=== PATIENT | male | born 1960 | race Caucasian/White ===

== ENCOUNTER → 2018-02-08 | Outpatient (CLI) | payer MEDICAID ==
[2018-02-08 07:43] LABS: ALT 40 U/L (21-72); AST 24 U/L (17-59); Albumin 4.2 g/dL (3.5-5.0); Alkaline Phosphatase 70 U/L (38-126); Anion Gap 12 mmol/L; Blood Urea Nitrogen 18 mg/dL (9-20); Calcium 9.1 mg/dL (8.4-10.2); Carbon Dioxide 28 mmol/L (22-30); Chloride 100 mmol/L (98-107); Cholesterol 181 mg/dL (<200); Glucose 147 mg/dL (74-99); HDL Cholesterol 50 mg/dL (40-60); LDL Cholesterol,Calculated 115 mg/dL (0-99); Potassium 5.3 mmol/L (3.5-5.1); Sodium 140 mmol/L (137-145); Total Bilirubin 0.5 mg/dL (0.2-1.3); Total Protein 7.3 g/dL (6.3-8.2); Triglycerides 80 mg/dL (<150)
[2018-02-08 11:36] LABS: Hemoglobin A1C 7.4 % (4.0-6.0)
== END | disposition home or self-care (01) ==
LOC: LABWHC1 06:47
PROVIDERS: ATTEND Internal Medicine Endocrinology, Diabetes & Metabolism
DX: E11.65 Type 2 diabetes mellitus with hyperglycemia (principal)
CPT/HCPCS: 36415; 80053; 80061; 82043; 82570; 83036

== ENCOUNTER 2018-07-13 11:11 | Day surgery (SDC) | payer MEDICAID ==
[2018-07-10 15:21] VITALS: BMI 51.7
[~2018-07-13 11:11] MED LIST: LACTATED RINGERS 1,000 ML IV SCH; LIDOCAINE 1% 20 ML VIAL (10MG/ML) FOR IV START INTRADERMA PRN
[2018-07-13 11:30] VITALS: TEMP 97.5
[2018-07-13 11:39] LABS: Glucose,Whole Blood 115 mg/dL (75-99)
[2018-07-13] MEDS ORDERED: PROPOFOL 10 MG/ML 20 ML VIAL IV ONE (12:25)
[2018-07-13] MEDS ORDERED: LIDOCAINE 1% INJ 10MG/ML (20 ML MDV) ONE (12:25)
--- NOTE | 2018-07-13 12:43 | P.OP ---
Date of Procedure: 07/13/18 Preoperative Diagnosis: History of diverticulitis status post left colon resection. Some left lower quadrant discomfort. Postoperative Diagnosis: Minimal diverticulosis. Normal sigmoid anastomosis at about 15 cm from the anal verge Procedure(s) Performed: Colonoscopy Anesthesia: MAC Surgeon: Bradley Sung Estimated Blood Loss (ml): 0 Pathology: none sent Condition: stable Disposition: same day Indications for Procedure: The patient is a 57-year-old white male who more than 2 years ago underwent the left colon resection for complications of diverticulitis. Comes in for follow- up. Has had some left lower quadrant discomfort. Informed consent was obtained. Operative Findings: Minimal diverticulosis. Normal sigmoid anastomosis. Description of Procedure: With the patient in the left lateral position rectal digital examination was normal. There are no palpable masses. No prostatic masses. The video colonoscope was inserted transanally and advanced all the way to the cecum which was entered and well visualized as was the ileocecal valve and appendiceal orifice. The mucosa were thoroughly examined. There was minimal diverticulosis uncomplicated. Normal sigmoid anastomosis. No polyps or neoplasms were seen. The patient tolerated the procedure well without any evident complication. Recommendation high fiber diet. Follow-up colonoscopy in about the 6-7 years now. May resume his home meds. Plan - Discharge Summary New Discharge Prescriptions: No Action Omeprazole [PriLOSEC] 20 mg PO DAILY traMADol HCL [Ultram] 50 mg PO Q6HR PRN PRN Reason: Pain metFORMIN HCL [metFORMIN HCL ER] 1,000 mg PO DAILY Discharge Medication List Omeprazole [PriLOSEC] 20 mg PO DAILY 06/28/16 [History] metFORMIN HCL [metFORMIN HCL ER] 1,000 mg PO DAILY 07/10/18 [History] traMADol HCL [Ultram] 50 mg PO Q6HR PRN 07/10/18 [History]
[2018-07-13 13:25] VITALS: BP 133/83; PULSE 65; RESP 18
== END 2018-07-13 13:25 | disposition home or self-care (01) ==
LOC: ORWHC2ENDO 11:11
PROVIDERS: ATTEND Surgery
DX: K57.30 Diverticulosis of large intestine without perforation or abscess without bleeding (principal); Z90.49 Acquired absence of other specified parts of digestive tract; K21.9 Gastro-esophageal reflux disease without esophagitis; Z87.19 Personal history of other diseases of the digestive system; E11.9 Type 2 diabetes mellitus without complications; E66.9 Obesity, unspecified; Z68.43 Body mass index [BMI] 50.0-59.9, adult; E78.5 Hyperlipidemia, unspecified; G89.29 Other chronic pain; M19.90 Unspecified osteoarthritis, unspecified site; Z87.891 Personal history of nicotine dependence; Z79.84 Long term (current) use of oral hypoglycemic drugs; Z79.899 Other long term (current) drug therapy; Z88.6 Allergy status to analgesic agent; Z88.8 Allergy status to other drugs, medicaments and biological substances; Z88.1 Allergy status to other antibiotic agents
CPT/HCPCS: 45378; J2001; J2704

== ENCOUNTER → 2018-07-13 | Outpatient (CLI) | payer MEDICAID ==
[2018-07-13 16:38] LABS: Albumin 4.2 g/dL (3.80-4.90); Albumin/Globulin Ratio 1.5 (1.20-2.10); Anion Gap 9.8 mmol/L (4.00-12.00); Carbon Dioxide 28.2 mmol/L (21.6-31.8); Globulin 2.8 g/dL (2.1-3.7); LDL Cholesterol,Calculated 114.8 mg/dL (0.0-131.0); Potassium 4.5 mmol/L (3.5-5.5); Total Bilirubin 0.5 mg/dL (0.3-1.2); VLDL Calculation 20.2 mg/dL (5.00-40.00)
[2018-07-13 18:11] LABS: Hemoglobin A1C 7.9 % (4.0-6.0)
== END | disposition home or self-care (01) ==
LOC: LABWHC1 09:51
PROVIDERS: ATTEND Internal Medicine Endocrinology, Diabetes & Metabolism
DX: E11.65 Type 2 diabetes mellitus with hyperglycemia (principal)
CPT/HCPCS: 36415; 80053; 80061; 82043; 82570; 83036

== ENCOUNTER → 2019-03-16 | Outpatient (CLI) | payer MEDICAID ==
[2019-03-16 16:04] LABS: African American GFR (CKD) 95.1 (60.0-200.0); Albumin 4.3 g/dL (3.80-4.90); Albumin/Globulin Ratio 1.43 (1.60-3.17); Anion Gap 7.6 mmol/L (4.00-12.00); Calcium 9.4 mg/dL (8.7-10.3); Carbon Dioxide 32.4 mmol/L (21.6-31.8); LDL Cholesterol,Calculated 124.2 mg/dL (0.0-131.0); Total Bilirubin 0.5 mg/dL (0.3-1.2); Total Protein 7.3 g/dL (6.2-8.2); VLDL Calculation 30.8 mg/dL (5.00-40.00)
[2019-03-16 18:59] LABS: Hemoglobin A1C 10.1 % (4.0-6.0)
== END | disposition home or self-care (01) ==
LOC: LABWHC1 08:58
PROVIDERS: ATTEND Internal Medicine Endocrinology, Diabetes & Metabolism
DX: E11.65 Type 2 diabetes mellitus with hyperglycemia (principal)
CPT/HCPCS: 36415; 80053; 80061; 82043; 82570; 83036; 84443

== ENCOUNTER → 2020-04-17 | Outpatient (CLI) | payer MEDICAID ==
--- NOTE | 2020-04-19 11:40 | MR ---
EXAMINATION TYPE: MR knee LT wo con DATE OF EXAM: 04/17/2020 COMPARISON: NONE HISTORY: Left knee pain x 1 month, other meniscal derangements per order. TECHNIQUE: Multiplanar, multisequence images of the knee is performed without IV contrast. FINDINGS: MEDIAL MENISCUS: Medial extrusion medial meniscus on coronal images Anterior horn is intact without t ear. Triangular increased signal posterior horn does not extend to meniscal surface LATERAL MENISCUS: Anterior and posterior horns are intact without tear. CRUCIATE LIGAMENTS: The anterior and posterior cruciate ligaments are intact and unremarkable. COLLATERAL LIGAMENTS: The medial collateral ligament and lateral collateral ligament complex are inta ct and unremarkable. EXTENSOR MECHANISM: Visualized quadriceps and patellar tendons are intact. EFFUSION: Small suprapatellar joint effusion. POPLITEAL CYST: No popliteal/krishna cyst. TRICOMPARTMENT SPACES: Mild to moderate tricompartment joint space loss and mild tricompartmental spu rring. CARTILAGE: Some chondromalacia patella with thinning of articular cartilage along the inferior door repairer bus ior patellar pole. Mild cartilaginous loss medial tibiofemoral compartment. BONE MARROW SIGNAL: No focal abnormal marrow signal is appreciated. OTHER: No additional significant abnormality is appreciated. IMPRESSION: 1. Intrasubstance tear posterior horn of medial meniscus. No full-thickness meniscal or ligamentous t ear. 2. Mild to borderline moderate tricompartment degenerative changes as detailed above. 3. Small suprapatellar joint effusion.
== END | disposition home or self-care (01) ==
LOC: RADMRIMAIN 20:42
PROVIDERS: ATTEND Physician Assistant
DX: S83.242A Other tear of medial meniscus, current injury, left knee, initial encounter (principal); M17.12 Unilateral primary osteoarthritis, left knee

== ENCOUNTER → 2020-12-10 | Outpatient (CLI) | payer MEDICAID ==
--- NOTE | 2020-12-10 08:33 | CT ---
EXAMINATION TYPE: CT sinus wo con DATE OF EXAM: 12/10/2020 COMPARISON: NONE HISTORY: Chronic sinusitis per order. Headaches per patient. CT DLP: 532.5 mGycm. Automated Exposure Control for Dose Reduction was Utilized. TECHNIQUE: CT scan of the sinuses is performed without contrast, axial images are obtained, coronal r eformatted images are also reviewed. FINDINGS: Nearly completely opacified left maxillary sinus with heterogeneous hyperdense material. No bony destruction. Right maxillary sinus shows [id number] peripheral mucosal thickening with in ferior 1.2 cm mucous retention cyst or polyp. There is mild to moderate mucosal thickening involving sphenoid sinuses bilaterally. Bilateral ethmoid sinuses show moderate mucosal thickening in increased opacification anteriorly. Suspect patchy fluid and small mucous retention cyst and/or polyps. Mild-t o-moderate mucosal thickening in the inferior right frontal sinus. Left frontal sinus is clear. The o stiomeatal complex is occluded bilaterally on the coronal images. Nasal septum is deviated to left of midline. Visualized portion of mastoid air cells show no abnormal opacification. The globes are intact bilate rally. Visualized portion of brain parenchyma shows mild to moderate diffuse cerebral atrophy and ch ronic small vessel ischemic change. IMPRESSION: Acute on chronic paranasal sinus disease as detailed above.
== END | disposition home or self-care (01) ==
LOC: RADCTMAIN 07:37
PROVIDERS: ATTEND Otolaryngology
DX: J32.9 Chronic sinusitis, unspecified (principal); J01.90 Acute sinusitis, unspecified
CPT/HCPCS: 70486